=== PATIENT | male | born 1985 | race Caucasian/White ===

== ENCOUNTER 2019-10-06 16:21 | Emergency (ER) | payer BC ==
[~2019-10-06] VITALS: Ht 162.6 cm; Wt 69.0 kg
[2019-10-06 17:04] VITALS: BP 120/67
--- NOTE | 2019-10-06 17:08 | NUR ---
AMBULATES BACK TO THE LOBBY
--- NOTE | 2019-10-06 18:00 | NUR ---
34/M PRESENTS TO ED, C/O COUGH X 5 DAYS. REPORTS PLEURITIC CHEST PAIN WITH COUGHING. REPORTS SUBJECTIVE FEVER. PT AWAKE AND ALERT, SKIN NORMAL COLOR WARM AND DRY, RR EVEN AND UNLABORED. DENIES MED HX. OTC IBUPROFEN/ADVIL AT 1300 WITHOUT RELIEF.
[2019-10-06] MEDS ORDERED: DEXAMETHASONE 10 MG/ML VIAL IM ONE (18:05)
[2019-10-06 18:24] VITALS: BP 120/67
--- NOTE | 2019-10-06 18:24 | NUR ---
Patient discharged with v/s stable. Written and verbal after care instructions given and explained. Patient alert, oriented and verbalized understanding of instructions. Ambulatory with steady gait. All questions addressed prior to discharge. ID band removed. Patient advised to follow up with PMD. Rx of ALBUTEROL INH, IBUPROFEN, TESSALON PERLES, PREDNISONE given. Patient educated on indication of medication including possible reaction and side effects. Opportunity to ask questions provided and answered.
== END 2019-10-06 18:24 | disposition home or self-care (01) ==
LOC: MED 16:21
DX: J40 Bronchitis, not specified as acute or chronic (principal)
CPT/HCPCS: 71045; 96372; 99283; J1100